=== PATIENT | male | born 1980 | race African-American/Black ===

== ENCOUNTER 2018-05-25 10:55 | Emergency (ER) | payer SELFPAY ==
[2018-05-25] MEDS ORDERED: NA CHLORIDE 0.9% 2,000 ML ONE (12:50)
[2018-05-25] MEDS ORDERED: ONDANSETRON 4 MG/2 ML VIAL ONE (12:50)
[2018-05-25 12:57] LABS: Arterial Blood Carboxyhemoglob 0.6 % (0-1.5); Blood Gas Oxyhemoglobin 94.5 % (94-97); Blood O2 Saturation 96.1 % (92-98.5)
[2018-05-25 13:05] LABS: Absolute Monocytes 0.5 K/uL (0.1-1.3); Absolute Neutrophil 4.5 K/uL (1.8-8.0); Eosinophils % 1.1 % (0-4.4); Hematocrit 45.3 % (39.6-49.0); Lymphocytes % 36.4 % (15.3-44.8); MCH 29.5 pg (27.0-35.0); MCV 86.5 fL (80-100); MPV 11.2 fL (7.6-11.3); Monocytes % 6.8 % (3.3-12.3); RBC Red Blood Cell Count 5.24 M/uL (4.33-5.43)
[2018-05-25 13:23] LABS: ALT/SGPT 39 U/L (12-78); AST/SGOT 23 U/L (15-37); Alkaline Phosphatase 167 U/L (45-117); BUN Blood Urea Nitrogen 15 mg/dL (7-18); Bicarbonate 28 mmol/L (21-32); Bilirubin Direct 0.1 mg/dL (0-0.2); Bilirubin Total 0.7 mg/dL (0.2-1.0); Glucose Level 388 mg/dL (74-106); Lipase 125 U/L (73-393); Potassium 4.7 mmol/L (3.5-5.1); Protein, Total 9.2 g/dL (6.4-8.2); Sodium Level 133 mmol/L (136-145)
[2018-05-25 13:38] LABS: Urine Bacteria <20 /HPF (NONE SEEN); Urine Culture Reflex Order NOT NEEDED; Urine RBC <5 /HPF (NONE SEEN)
[2018-05-25 15:10] LABS: Urine Blood 1+ (NEG); Urine Glucose 2+ (NEG); Urine Protein TRACE (NEG); Urine Specific Gravity 1.015 (1.005-1.030); Urine pH 5.5 (5.0-7.0)
--- NOTE | 2018-05-25 15:40 | EDPHYS ---
Physician Documentation [facility] Name: Scott Castillo Age: 37 yrs Sex: Male : 1980 Arrival Date: 05/25/2018 Time: 11:00 Bed 14 Private MD: Out, [facility] ED Physician Ken Traore HPI: 05/25 12:25 This 37 yrs old Black Male presents to ER via Ambulatory with complaints of High Blood jmm Sugar. 12:25 The patient or guardian reports generalized weakness, polyuria, weight loss, blurred jmm vision. Onset: The symptoms/episode began/occurred gradually, 1.5 week(s) ago. Associated signs and symptoms: Pertinent positives: nausea, polyuria. Patient evaluated at clinic and advised to go to the ED due to elevated blood glucose. . 12:25 Patient also complains of bumps to the top of his head and chin. Denies fever, denies jmm drainage. Historical: - Allergies: 11:12 No Known Allergies; aa5 - Home Meds: 11:12 None [Active]; aa5 - PMHx: 11:12 None; aa5 - PSHx: 11:12 None; aa5 - Immunization history:: Flu vaccine is not up to date. - Social history:: Smoking status: Patient/guardian denies using tobacco. - Ebola Screening: : No symptoms or risks identified at this time. ROS: 12:25 Cardiovascular: Negative for chest pain, palpitations, and edema, Respiratory: Negative jmm for shortness of breath, cough, wheezing, and pleuritic chest pain. 12:25 Constitutional: Positive for malaise, weight loss. 12:25 Eyes: Positive for blurry vision. 12:25 Abdomen/GI: Positive for nausea. 12:25 : Positive for urinary symptoms. 12:25 Endocrine: Positive for polyuria. 12:25 All other systems are negative. Exam: 12:25 Head/Face: atraumatic. Eyes: EOMI, no conjunctival erythema appreciated ENT: Moist jmm Mucus Membranes Neck: Trachea midline, Supple Chest/axilla: Normal chest wall appearance and motion. Cardiovascular: Regular rate and rhythm. No edema appreciated Respiratory: Normal respirations, no respiratory distress appreciated Abdomen/GI: Non distended, soft Back: Normal ROM Skin: General appearance color normal MS/ Extremity: Moves all extremities, no obvious deformities appreciated, no edema noted to the lower extremities Neuro: Awake and alert, normal gait Psych: Behavior is normal, Mood is normal, Patient is cooperative and pleasant 12:25 Constitutional: The patient appears in no acute distress, alert, awake. Vital Signs: 11:11 BP 153 / 99; Pulse 61; Resp 16 S; Temp 98.0(TE); Pulse Ox 98% on R/A; Weight 85.73 kg aa5 (R); Height 5 ft. 8 in. (172.72 cm) (R); Pain 3/10; 12:15 BP 137 / 96; Pulse 52; Resp 18; Pulse Ox 99% on R/A; aj1 13:15 BP 134 / 91; Pulse 58; Resp 18; Pulse Ox 100% ; aj1 14:15 BP 127 / 88; Pulse 55; Resp 16; Pulse Ox 100% on R/A; aj1 15:22 BP 120 / 86; Pulse 64; Resp 18; Pulse Ox 95% on R/A; aj1 11:11 Body Mass Index 28.74 (85.73 kg, 172.72 cm) aa5 MDM: 12:20 Patient medically screened. [facility] 15:38 Data reviewed: vital signs, nurses notes. Counseling: I had a detailed discussion with [facility] the patient and/or guardian regarding: the historical points, exam findings, and any diagnostic results supporting the discharge/admit diagnosis, the need for outpatient follow up, to return to the emergency department if symptoms worsen or persist or if there are any questions or concerns that arise at home. 15:38 Data reviewed: lab test result(s). [facility] 16:16 ED course: The patient will be prescribed starting dose for metformin due to no primary [facility] care. Patient advised to establish himself with PCP. Patient prescribed oral antibiotics for folliculitis. Patient given strict return precautions. Patient understood and agrees with the plan of care. . 05/25 12:21 Order name: Basic Metabolic Panel; Complete Time: 14:33 [facility] 05/25 12:21 Order name: CBC with Diff; Complete Time: 13:30 [facility] 05/25 12:21 Order name: Creatinine for Radiology; Complete Time: 13:30 [facility] 05/25 12:21 Order name: Hepatic Function; Complete Time: 14:33 [facility] 05/25 12:21 Order name: Lipase; Complete Time: 14:33 [facility] 05/25 12:21 Order name: Ketone, Serum; Complete Time: 14:33 [facility] 05/25 12:21 Order name: IV Saline Lock; Complete Time: 12:50 [facility] 05/25 12:21 Order name: Labs collected and sent; Complete Time: 12:50 [facility] 05/25 12:21 Order name: ABG; Complete Time: 13:04 [facility] 05/25 12:49 Order name: Urine Microscopic Only; Complete Time: 13:52 [facility] 05/25 12:50 Order name: Urine Dipstick--Ancillary (enter results); Complete Time: 15:10 eb 05/25 16:10 Order name: Glucose, Ancillary Testing; Complete Time: 16:16 [facility] 05/25 12:21 Order name: Urine Dipstick-Ancillary (obtain specimen); Complete Time: 12:50 [facility] 05/25 15:00 Order name: Fingerstick Glucose; Complete Time: 16:07 [facility] Administered Medications: 13:00 Drug: NS 0.9% 2000 ml Route: IV; Rate: 2000 ml; Site: right antecubital; hb 13:00 Drug: Zofran 4 mg Route: IVP; Site: right antecubital; hb Point of Care Testing: Blood Glucose: 11:11 Blood Glucose: 365 mg/dL; aa5 16:06 Blood Glucose: 254 mg/dL; dh3 Ranges: Critical Glucose Levels:Adult <50 mg/dl or >400 mg/dl <40 mg/dl or >180 mg/dl Disposition: 18:49 Co-signature as Attending Physician, Ken Traore MD. rn Disposition: 05/25/18 15:39 Discharged to Home. Impression: Hyperglycemia, unspecified, Folliculitis. - Condition is Stable. - Discharge Instructions: Hyperglycemia, Folliculitis. - Prescriptions for Metformin 500 mg Oral Tablet - take 1 tablet by ORAL route once daily for 7 days Then take 1 tablet with morning meals AND evening meals; 21 tablet. Bactrim DS 800- 160 mg Oral Tablet - take 1 tablet by ORAL route every 12 hours for 10 days; 20 tablet. - Work release form, Medication Reconciliation Form, Thank You Letter, Antibiotic Education, Prescription Opioid Use, Family Work Release form. - Follow up: Private Physician; When: 2 - 3 days; Reason: Recheck today's complaints, Continuance of care, Re-evaluation by your physician. Signatures: Dispatcher [employer] EDMS Abisai Norris PA PA Ken Dickson MD MD rn Calderon, Audri, RN RN aa5 Renea Abdalla RN RN hb Corrections: (The following items were deleted from the chart) 15:43 15:39 05/25/2018 15:39 Discharged to Home. Impression: Hyperglycemia, unspecified. [facility] Condition is Stable. Forms are Medication Reconciliation Form, Thank You Letter, Antibiotic Education, Prescription Opioid Use. Follow up: Private Physician; When: 2 - 3 days; Reason: Recheck today's complaints, Continuance of care, Re-evaluation by your physician. [facility] 16:11 15:43 05/25/2018 15:39 Discharged to Home. Impression: Hyperglycemia, unspecified; hb Folliculitis. Condition is Stable. Discharge Instructions: Hyperglycemia. Prescriptions for Metformin 500 mg Oral Tablet - take 1 tablet by ORAL route once daily for 7 days Then take 1 tablet with morning meals AND evening meals; 21 tablet. and Forms are Medication Reconciliation Form, Thank You Letter, Antibiotic Education, Prescription Opioid Use. Follow up: Private Physician; When: 2 - 3 days; Reason: Recheck today's complaints, Continuance of care, Re-evaluation by your physician. [facility]
--- NOTE | 2018-05-25 15:40 | ER ---
Nurse's Notes [facility] Name: Scott Castillo Age: 37 yrs Sex: Male : 1980 Arrival Date: 05/25/2018 Time: 11:00 Bed 14 Private MD: Out, [facility] Diagnosis: Hyperglycemia, unspecified;Folliculitis Presentation: 05/25 11:12 Presenting complaint: Patient states: blurry vision, nausea, and headache x 1 week ago. aa5 Pt states "I went to a clinic this morning and they said my blood sugar was too high and that I needed to come to the ER". Transition of care: patient was not received from another setting of care. Onset of symptoms was May 25, 2018. Risk Assessment: Do you want to hurt yourself or someone else? Patient reports no desire to harm self or others. Initial Sepsis Screen: Does the patient meet any 2 criteria? No. Patient's initial sepsis screen is negative. Does the patient have a suspected source of infection? No. Patient's initial sepsis screen is negative. Care prior to arrival: None. 11:12 Method Of Arrival: Ambulatory aa5 11:12 Acuity: LESLI 3 aa5 Historical: - Allergies: 11:12 No Known Allergies; aa5 - Home Meds: 11:12 None [Active]; aa5 - PMHx: 11:12 None; aa5 - PSHx: 11:12 None; aa5 - Immunization history:: Flu vaccine is not up to date. - Social history:: Smoking status: Patient/guardian denies using tobacco. - Ebola Screening: : No symptoms or risks identified at this time. Screenin:15 Abuse screen: Denies threats or abuse. Denies injuries from another. Nutritional aj1 screening: No deficits noted. Tuberculosis screening: No symptoms or risk factors identified. Assessment: 12:15 General: Appears in no apparent distress. uncomfortable, Behavior is calm, cooperative, aj1 appropriate for age. Pain: Complains of pain in forehead Pain does not radiate. Neuro: Level of Consciousness is awake, alert, obeys commands, Oriented to person, place, time, situation, Moves all extremities. Full function Gait is steady, Speech is normal, Facial symmetry appears normal, Reports blurred vision headache Denies weakness dizziness. Cardiovascular: Patient's skin is warm and dry. Respiratory: Airway is patent Respiratory effort is even, unlabored, Respiratory pattern is regular, symmetrical. GI: Abdomen is non-distended, Bowel sounds present X 4 quads. Reports nausea, Patient currently denies diarrhea, vomiting. : Reports urinary frequency. EENT: No signs and/or symptoms were reported regarding the EENT system. Derm: Skin is pink, warm \\T\\ dry. normal. Musculoskeletal: Circulation, motion, and sensation intact. 13:20 Reassessment: Patient appears in no apparent distress at this time. No changes from aj1 previously documented assessment. Patient and/or family updated on plan of care and expected duration. Pain level reassessed. Patient is alert, oriented x 3, equal unlabored respirations, skin warm/dry/pink. 14:25 Reassessment: Patient and/or family updated on plan of care and expected duration. Pain aj1 level reassessed. General: Appears in no apparent distress. uncomfortable, Behavior is calm, cooperative. Neuro: Level of Consciousness is awake, alert, obeys commands. Cardiovascular: Patient's skin is warm and dry. Respiratory: Airway is patent Respiratory effort is even, unlabored, Respiratory pattern is regular, symmetrical. Derm: Skin is pink, warm \\T\\ dry. normal. Musculoskeletal: Circulation, motion, and sensation intact. 15:22 Reassessment: Patient appears in no apparent distress at this time. No changes from aj1 previously documented assessment. Patient and/or family updated on plan of care and expected duration. Pain level reassessed. Patient is alert, oriented x 3, equal unlabored respirations, skin warm/dry/pink. Vital Signs: 11:11 BP 153 / 99; Pulse 61; Resp 16 S; Temp 98.0(TE); Pulse Ox 98% on R/A; Weight 85.73 kg aa5 (R); Height 5 ft. 8 in. (172.72 cm) (R); Pain 3/10; 12:15 BP 137 / 96; Pulse 52; Resp 18; Pulse Ox 99% on R/A; aj1 13:15 BP 134 / 91; Pulse 58; Resp 18; Pulse Ox 100% ; aj1 14:15 BP 127 / 88; Pulse 55; Resp 16; Pulse Ox 100% on R/A; aj1 15:22 BP 120 / 86; Pulse 64; Resp 18; Pulse Ox 95% on R/A; aj1 11:11 Body Mass Index 28.74 (85.73 kg, 172.72 cm) aa5 ED Course: 11:00 Patient arrived in ED. sb2 11:00 Out, Town is Private Physician. sb2 11:12 Arm band placed on. aa5 11:13 Triage completed. aa5 12:10 Abisai Norris PA is PHCP. [facility] 12:10 Ken Traore MD is Attending Physician. [facility] 12:15 Patient has correct armband on for positive identification. Bed in low position. Call aj1 light in reach. Side rails up X 1. 12:15 No provider procedures requiring assistance completed. aj1 12:43 Initial lab(s) drawn, by me, sent to lab. Inserted saline lock: 20 gauge in right 3 antecubital area, using aseptic technique. Blood collected. 12:49 Urine collected: clean catch specimen, clear. 3 14:54 Regina Jane, RN is Primary Nurse. aj1 16:10 IV discontinued, intact, bleeding controlled, No redness/swelling at site. Pressure hb dressing applied. Administered Medications: 13:00 Drug: NS 0.9% 2000 ml Route: IV; Rate: 2000 ml; Site: right antecubital; hb 13:00 Drug: Zofran 4 mg Route: IVP; Site: right antecubital; hb Point of Care Testing: Blood Glucose: 11:11 Blood Glucose: 365 mg/dL; aa5 16:06 Blood Glucose: 254 mg/dL; 3 Ranges: Outcome: 15:39 Discharge ordered by . [facility] 16:10 Discharged to home ambulatory. hb 16:10 Condition: stable 16:10 Discharge instructions given to patient, Instructed on discharge instructions, follow up and referral plans. medication usage, Demonstrated understanding of instructions, follow-up care, medications, Prescriptions given X 2. 16:11 Patient left the ED. hb Signatures: Regina Jane, RN RN aj1 Abisai Norris PA PA jmm Calderon, Audri RN RN aa5 Renea Abdalla, HIPOLITO RN Cary Byrd 3 Olimpia Ray sb2
== END 2018-05-25 16:11 | disposition home or self-care (01) ==
LOC: ER 10:55
DX: R73.9 Hyperglycemia, unspecified (principal); L73.9 Follicular disorder, unspecified
CPT/HCPCS: 36415; 80048; 80076; 81003; 81015; 82010; 82805; 82962; 83690; 85025; 96374; 99284; J2405; J7030